=== PATIENT | male | born 1975 | race Caucasian/White ===

== ENCOUNTER → 2024-01-12 09:42 | Outpatient (REF) | payer BC, SELFPAY | LOC: RAD 09:42 | PROVIDERS: ATTENDING PHYSICIAN Otolaryngology Otolaryngology/Facial Plastic Surgery; FAMILY PHYSICIAN Family Medicine | DX: R13.13 Dysphagia, pharyngeal phase (principal) | CPT/HCPCS: 74221 ==

== ENCOUNTER → 2024-06-11 12:35 | Outpatient (REF) | payer BC, SELFPAY | LOC: RAD 12:35 | PROVIDERS: ATTENDING PHYSICIAN Internal Medicine; FAMILY PHYSICIAN Family Medicine | DX: K59.09 Other constipation (principal) | CPT/HCPCS: 74019 ==

== ENCOUNTER 2024-07-30 06:18 | Outpatient (RCR) | payer BC, SELFPAY | END 2024-07-30 23:59 | disposition home or self-care (01) | LOC: RPT 06:18 | PROVIDERS: ATTENDING PHYSICIAN Internal Medicine; FAMILY PHYSICIAN Family Medicine | DX: M62.89 Other specified disorders of muscle (principal); Z73.6 Limitation of activities due to disability; R27.8 Other lack of coordination; L40.50 Arthropathic psoriasis, unspecified; M54.50 Low back pain, unspecified; R10.9 Unspecified abdominal pain | CPT/HCPCS: 97163; 97530 ==

== ENCOUNTER 2024-09-13 08:10 | Outpatient (RCR) | payer BC, SELFPAY | END 2024-09-13 23:59 | disposition home or self-care (01) | LOC: RPT 08:10 | PROVIDERS: ATTENDING PHYSICIAN Internal Medicine; FAMILY PHYSICIAN Family Medicine | DX: M62.89 Other specified disorders of muscle (principal); Z73.6 Limitation of activities due to disability; R27.8 Other lack of coordination; L40.50 Arthropathic psoriasis, unspecified; M54.50 Low back pain, unspecified; R10.9 Unspecified abdominal pain | CPT/HCPCS: 97014; 97110; 97112; 97140; 97530 ==

== ENCOUNTER 2024-10-11 07:31 | Outpatient (RCR) | payer BC, SELFPAY | END 2024-10-11 23:59 | disposition home or self-care (01) | LOC: RPT 07:31 | PROVIDERS: ATTENDING PHYSICIAN Internal Medicine; FAMILY PHYSICIAN Family Medicine | DX: M62.89 Other specified disorders of muscle (principal); Z73.6 Limitation of activities due to disability; R27.8 Other lack of coordination; L40.50 Arthropathic psoriasis, unspecified; M54.50 Low back pain, unspecified; R10.9 Unspecified abdominal pain | CPT/HCPCS: 97014; 97110; 97112; 97530 ==

== ENCOUNTER 2024-11-08 06:09 | Outpatient (RCR) | payer BC, SELFPAY | END 2024-11-08 23:59 | disposition home or self-care (01) | LOC: RPT 06:09 | PROVIDERS: ATTENDING PHYSICIAN Internal Medicine; FAMILY PHYSICIAN Family Medicine | DX: M62.89 Other specified disorders of muscle (principal); Z73.6 Limitation of activities due to disability; R27.8 Other lack of coordination; L40.50 Arthropathic psoriasis, unspecified; M54.50 Low back pain, unspecified; R10.9 Unspecified abdominal pain | CPT/HCPCS: 97014; 97110; 97112; 97140; 97530 ==

== ENCOUNTER 2024-12-06 06:49 | Outpatient (RCR) | payer BC, SELFPAY | END 2024-12-06 23:59 | disposition home or self-care (01) | LOC: RPT 06:49 | PROVIDERS: ATTENDING PHYSICIAN Internal Medicine; FAMILY PHYSICIAN Family Medicine | DX: M62.89 Other specified disorders of muscle (principal); Z73.6 Limitation of activities due to disability; R27.8 Other lack of coordination; L40.50 Arthropathic psoriasis, unspecified; M54.50 Low back pain, unspecified; R10.9 Unspecified abdominal pain | CPT/HCPCS: 97014; 97110; 97112; 97140; 97530 ==

== ENCOUNTER 2025-01-24 07:23 | Outpatient (RCR) | payer BC, SELFPAY | END 2025-01-24 23:59 | disposition home or self-care (01) | LOC: RPT 07:23 | PROVIDERS: ATTENDING PHYSICIAN Internal Medicine; FAMILY PHYSICIAN Family Medicine | DX: M62.89 Other specified disorders of muscle (principal); Z73.6 Limitation of activities due to disability; R27.8 Other lack of coordination; L40.50 Arthropathic psoriasis, unspecified; M54.50 Low back pain, unspecified; R10.9 Unspecified abdominal pain | CPT/HCPCS: 97110; 97530 ==

== ENCOUNTER 2025-03-07 06:52 | Outpatient (RCR) | payer BC, SELFPAY | END 2025-03-07 23:59 | disposition home or self-care (01) | LOC: RPT 06:52 | PROVIDERS: ATTENDING PHYSICIAN Internal Medicine; FAMILY PHYSICIAN Family Medicine | DX: M62.89 Other specified disorders of muscle (principal); Z73.6 Limitation of activities due to disability; R27.8 Other lack of coordination; L40.50 Arthropathic psoriasis, unspecified; M54.50 Low back pain, unspecified; R10.9 Unspecified abdominal pain | CPT/HCPCS: 97110; 97530 ==

== ENCOUNTER → 2025-03-10 07:57 | Outpatient (REF) | payer BC, SELFPAY | LOC: RAD 07:57 | PROVIDERS: ATTENDING PHYSICIAN Family Medicine; REFERRING PHYSICIAN Internal Medicine | DX: K59.09 Other constipation (principal) | CPT/HCPCS: 78264; A9541 ==

== ENCOUNTER 2025-05-09 06:46 | Outpatient (RCR) | payer BC, SELFPAY | END 2025-05-09 07:48 | disposition home or self-care (01) | LOC: RPT 06:46 | PROVIDERS: ATTENDING PHYSICIAN Internal Medicine; FAMILY PHYSICIAN Family Medicine | DX: M62.89 Other specified disorders of muscle (principal); Z73.6 Limitation of activities due to disability; R27.8 Other lack of coordination; L40.50 Arthropathic psoriasis, unspecified; M54.50 Low back pain, unspecified; R10.9 Unspecified abdominal pain | CPT/HCPCS: 97112; 97530 ==